=== PATIENT | female | born 1970 | race Caucasian/White ===

== ENCOUNTER 2022-01-05 07:55 | Outpatient (CLI) | payer BC | END 2022-01-05 07:56 | disposition home or self-care (01) | LOC: CSHMAMMO 07:55 | PROVIDERS: ATTEND Obstetrics & Gynecology | DX: Z12.31 Encounter for screening mammogram for malignant neoplasm of breast (principal) | CPT/HCPCS: 77063; 77067 ==

== ENCOUNTER 2023-02-24 09:36 | Outpatient (CLI) | payer BC | END 2023-02-24 09:37 | disposition home or self-care (01) | LOC: CSHMAMMO 09:36 | PROVIDERS: ATTEND Obstetrics & Gynecology | DX: Z12.31 Encounter for screening mammogram for malignant neoplasm of breast (principal) | CPT/HCPCS: 77063; 77067 ==

== ENCOUNTER 2024-03-02 07:46 | Outpatient (CLI) | payer BC | END 2024-03-02 07:47 | disposition home or self-care (01) | LOC: CSHMAMMO 07:46 | PROVIDERS: ATTEND Obstetrics & Gynecology | DX: Z12.31 Encounter for screening mammogram for malignant neoplasm of breast (principal); Z13.820 Encounter for screening for osteoporosis; M85.89 Other specified disorders of bone density and structure, multiple sites | CPT/HCPCS: 77063; 77067; 77080 ==

== ENCOUNTER 2025-03-06 08:42 | Outpatient (CLI) | payer BC | END 2025-03-06 08:43 | disposition home or self-care (01) | LOC: CSHMAMMO 08:42 | PROVIDERS: ATTEND Obstetrics & Gynecology | DX: Z12.31 Encounter for screening mammogram for malignant neoplasm of breast (principal); Z80.3 Family history of malignant neoplasm of breast | CPT/HCPCS: 77063; 77067 ==